=== PATIENT | male | born 1965 | race Caucasian/White ===

== ENCOUNTER 2019-01-09 05:56 | Inpatient (IN) ==
[2019-01-01 14:16] LABS: Basophils # 0.1 10*3/uL (0.0-0.2); Basophils % 0.6 % (0.0-0.8); Eosinophils # 0.1 10*3/uL (0.0-0.87); Eosinophils % 1.8 % (0.00-10.9); Hematocrit 45.3 VOL% (42.0-52.0); Hemoglobin 15.5 GM/DL (14.0-18.0); Immature Granulocytes % 0.5 %; Immature Granulocytes Absolute 0.04 #; Lymphocytes # 2.8 10*3/uL (1.4-4.0); Lymphocytes % 35.6 % (21.2-54.2); Mean Corpuscular HGB Conc 34.2 GM/DL (32-36); Mean Corpuscular Volume 91.3 FL (87-102); Mean Platelet Volume 8.6 FL (9.6-12.0); Monocytes % 8.8 % (1.7-12.7); Neutrophils % 52.7 % (38.7-73.9); Platelet Count 208 T/CUMM (130-400); Red Blood Count 4.96 MC/CUMM (3.8-5.5); Red Cell Distribution Width 13.3 % (9.3-17.3); White Blood Count 7.9 T/CUMM (4-12)
[2019-01-01 14:38] LABS: Albumin 4.1 G/DL (3.4-5.0); Bilirubin,Total 0.4 MG/DL (0.2-1.0); Calcium 9.7 MG/DL (8.5-10.1); Osmolality,Calculated 272.8 MOS/KG (273-304); Total Protein 7.7 G/DL (6.4-8.3)
[2019-01-09] MEDS ORDERED: FAMOTIDINE 20 MG TABLET PO ONE (06:00)
[2019-01-09] MEDS ORDERED: cefTRIAXone 1,000 MG in SYRINGE 1 EACH IV ONE (06:00)
[2019-01-09] MEDS ORDERED: BUPIVACAINE 0.5% 50 ML VIAL ONE (06:35)
[2019-01-09] MEDS ORDERED: DEXAMETHASONE 4 MG/1 ML VIAL ONE ×2 (06:36→12:38)
[2019-01-09] MEDS ORDERED: cefTRIAXone 1,000 MG VIAL ONE (06:50)
[2019-01-09] MEDS ORDERED: FAMOTIDINE 20 MG TABLET ONE (06:50)
[2019-01-09] MEDS ORDERED: LACTATED RINGERS 1,000 ML IV SCH (07:00)
[2019-01-09] MEDS ORDERED: METHYLENE BLUE 10 ML VIAL IV ONE (10:50)
[2019-01-09] MEDS ORDERED: ROPIVACAINE 0.5% 30 ML VIAL ONE (11:44)
[2019-01-09 12:10] LABS: Apearance,Urine CLEAR (Clear); Bilirubin,Urine Negative (Negative); Blood, Urine Small mg/dL (Negative); Glucose,Urine (UA) Negative (Negative); Hyaline Casts,Urine 14 /LPF (0-3); Ketones,Urine Negative (Negative); Mucus,Urine Occasional /LPF (Occasional); Nitrite,Urine Negative (Negative); Protein,Urine Negative; RBC,Urine 5 /HPF (0-4); Urine Color Yellow (Yellow); Urine Specific Gravity 1.014 (1.001-1.035); Urine Urobilinogen < 2.0 EU/DL (0.2-1.0); WBC,Urine 1 /HPF (0-6)
[2019-01-09] MEDS ORDERED: LACTULOSE 20 GM/30 ML UDCUP PO PRN (12:23)
[2019-01-09] MEDS ORDERED: diphenhydrAMINE 50 MG/1 ML VIAL IV PRN (12:23)
[2019-01-09] MEDS ORDERED: HYDROmorphone 2 MG/1 ML VIAL IV PRN (12:27)
[2019-01-09] MEDS ORDERED: BELLADONNA/OPIUM 30 MG SUPP RECTAL PRN (12:29)
[2019-01-09] MEDS ORDERED: LIDOCAINE 2% 5 ML VIAL ONE (12:37)
[2019-01-09] MEDS ORDERED: PHENYLEPHRINE DRIP 20 MG/250 ML PREMIX IV ONE (12:37)
[2019-01-09] MEDS ORDERED: SEVOFLURANE 1 UNIT/15 MINUTE INH ONE (12:37)
[2019-01-09] MEDS ORDERED: MIDAZOLAM 2 MG/2 ML VIAL ONE (12:37)
[2019-01-09] MEDS ORDERED: PROPOFOL 200 MG/20 ML VIAL IV ONE (12:37)
[2019-01-09] MEDS ORDERED: GLYCOPYRROLATE 0.4 MG/2 ML VIAL ONE (12:38)
[2019-01-09] MEDS ORDERED: ONDANSETRON 4 MG/2 ML VIAL ONE ×2 (12:38→12:59)
[2019-01-09] MEDS ORDERED: PROMETHAZINE INJ 25 MG in SODIUM CHLORIDE 0.9% 50 ML IV PRN (12:38)
[2019-01-09] MEDS ORDERED: ROCURONIUM 100 MG/10 ML VIAL IV ONE (12:38)
[2019-01-09] MEDS ORDERED: SUFentanil 50 MCG/ML AMP ONE (12:38)
[2019-01-09] MEDS ORDERED: PHENYLEPHRINE 1 MG/10 ML SYRINGE IV ONE (12:38)
[2019-01-09] MEDS ORDERED: LACTATED RINGERS 1,000 ML IV ONE (12:38)
[2019-01-09] MEDS ORDERED: ONDANSETRON 4 MG/2 ML VIAL IV PRN (12:38)
[2019-01-09] MEDS ORDERED: NEOSTIGMINE 10 MG/10 ML VIAL ONE (12:38)
[2019-01-09] MEDS: ACETAMINOPHEN 325 MG TABLET PO SCH ×2 (12:39→18:45)
[2019-01-09] MEDS: SODIUM CHLORIDE 0.9% 1,000 ML IV SCH ×2 (12:40→21:19)
[2019-01-09] MEDS ORDERED: PROMETHAZINE 25 MG/1 ML VIAL ONE (12:59)
[2019-01-09] MEDS ORDERED: MEPERIDINE 25 MG/1 ML VIAL ONE ×2 (12:59→13:05)
[2019-01-09] MEDS: MEPERIDINE 25 MG/1 ML VIAL IV PRN ×2 (13:00→13:10)
[2019-01-09 13:44] LABS: Basophils % 0.3 % (0.0-0.8); Hematocrit 46.7 VOL% (42.0-52.0); Hemoglobin 15.5 GM/DL (14.0-18.0); Immature Granulocytes % 0.6 %; Immature Granulocytes Absolute 0.09 #; Lymphocytes # 0.9 10*3/uL (1.4-4.0); Lymphocytes % 5.6 % (21.2-54.2); Mean Corpuscular HGB Conc 33.2 GM/DL (32-36); Mean Corpuscular Volume 92.8 FL (87-102); Mean Platelet Volume 8.9 FL (9.6-12.0); Monocytes % 3.3 % (1.7-12.7); Neutrophils % 90.2 % (38.7-73.9); Platelet Count 197 T/CUMM (130-400); Red Blood Count 5.03 MC/CUMM (3.8-5.5); Red Cell Distribution Width 13.5 % (9.3-17.3); White Blood Count 15.2 T/CUMM (4-12)
[2019-01-09 14:04] LABS: Calcium 8.9 MG/DL (8.5-10.1); Osmolality,Calculated 280.7 MOS/KG (273-304)
[2019-01-09] MEDS: DOCUSATE SODIUM 100 MG CAPSULE PO SCH (22:47)
[2019-01-10] MEDS: ACETAMINOPHEN 325 MG TABLET PO SCH ×4 (00:03→18:16)
[2019-01-10] MEDS: SODIUM CHLORIDE 0.9% 1,000 ML IV SCH (04:09)
[2019-01-10 07:19] LABS: Basophils % 0.2 % (0.0-0.8); Eosinophils % 0.2 % (0.00-10.9); Hematocrit 38.1 VOL% (42.0-52.0); Hemoglobin 12.9 GM/DL (14.0-18.0); Immature Granulocytes % 0.5 %; Immature Granulocytes Absolute 0.05 #; Lymphocytes # 1.9 10*3/uL (1.4-4.0); Lymphocytes % 18.3 % (21.2-54.2); Mean Corpuscular HGB Conc 33.9 GM/DL (32-36); Mean Corpuscular Volume 91.8 FL (87-102); Mean Platelet Volume 9.5 FL (9.6-12.0); Monocytes % 11.7 % (1.7-12.7); Neutrophils % 69.1 % (38.7-73.9); Platelet Count 174 T/CUMM (130-400); Red Blood Count 4.15 MC/CUMM (3.8-5.5); Red Cell Distribution Width 13.7 % (9.3-17.3); White Blood Count 10.4 T/CUMM (4-12)
[2019-01-10 07:44] LABS: Calcium 8.1 MG/DL (8.5-10.1); Osmolality,Calculated 275.5 MOS/KG (273-304)
[2019-01-10] MEDS ORDERED: POTASSIUM CHLORIDE 20 MEQ TABLET PO ONE (07:46)
[2019-01-10] MEDS ORDERED: SODIUM CHLOR 0.9% KCL 20 MEQ 20 MEQ/1,000 ML BAG IV SCH (08:00)
[2019-01-10] MEDS: ONDANSETRON 4 MG/2 ML VIAL IV PRN (10:10)
[2019-01-10] MEDS: FAMOTIDINE 20 MG TABLET PO SCH (10:11)
[2019-01-10] MEDS: DOCUSATE SODIUM 100 MG CAPSULE PO SCH ×2 (10:12→21:59)
[2019-01-10] MEDS: oxyCODONE/ACETAMINOPHEN 5-325 MG TABLET PO PRN ×2 (15:08→21:59)
[2019-01-10] MEDS: hydroCHLOROthiazide 12.5 MG CAPSULE PO SCH (16:48)
[2019-01-10] MEDS: SIMETHICONE CHEW 80 MG TABLET PO PRN ×2 (18:06→21:59)
[2019-01-10] MEDS ORDERED: OXYBUTYNIN XL 10 MG TABLET PO SCH (21:00)
[2019-01-11] MEDS: ACETAMINOPHEN 325 MG TABLET PO SCH ×3 (00:43→08:20)
[2019-01-11] MEDS: oxyCODONE/ACETAMINOPHEN 5-325 MG TABLET PO PRN (04:46)
[2019-01-11] MEDS: SIMETHICONE CHEW 80 MG TABLET PO PRN (04:46)
[2019-01-11] MEDS: ONDANSETRON 4 MG/2 ML VIAL IV PRN (04:58)
[2019-01-11 05:39] LABS: Basophils % 0.4 % (0.0-0.8); Eosinophils # 0.1 10*3/uL (0.0-0.87); Eosinophils % 0.7 % (0.00-10.9); Hematocrit 35.3 VOL% (42.0-52.0); Hemoglobin 12.2 GM/DL (14.0-18.0); Immature Granulocytes % 0.5 %; Immature Granulocytes Absolute 0.05 #; Lymphocytes # 1.6 10*3/uL (1.4-4.0); Lymphocytes % 16.1 % (21.2-54.2); Mean Corpuscular HGB Conc 34.6 GM/DL (32-36); Mean Platelet Volume 9.6 FL (9.6-12.0); Monocytes % 9.5 % (1.7-12.7); Neutrophils % 72.8 % (38.7-73.9); Platelet Count 160 T/CUMM (130-400); Red Blood Count 3.88 MC/CUMM (3.8-5.5); Red Cell Distribution Width 13.2 % (9.3-17.3); White Blood Count 9.9 T/CUMM (4-12)
[2019-01-11 06:05] LABS: Calcium 8.4 MG/DL (8.5-10.1); Osmolality,Calculated 262.5 MOS/KG (273-304)
[2019-01-11] MEDS ORDERED: POTASSIUM CHLORIDE 20 MEQ TABLET PO ONE (07:03)
[2019-01-11 07:14] VITALS: BP 160/88
[2019-01-11] MEDS: DOCUSATE SODIUM 100 MG CAPSULE PO SCH (08:21)
[2019-01-11] MEDS: FAMOTIDINE 20 MG TABLET PO SCH (08:21)
[2019-01-11] MEDS: hydroCHLOROthiazide 12.5 MG CAPSULE PO SCH (08:21)
== END 2019-01-11 12:03 | disposition home or self-care (01) | DRG 707 ==
LOC: N.PREADM 05:56 → N.SDSINP 05:56 → N.5E 14:20
PROVIDERS: ADMIT Surgery; ATTEND Surgery

== ENCOUNTER 2021-09-15 06:33 | Inpatient (IN) ==
[2021-09-15] MEDS ORDERED: SODIUM CHLORIDE 0.9% 1,000 ML IV STA (06:53)
[2021-09-15] MEDS ORDERED: ONDANSETRON 4 MG/2 ML VIAL IV STA (06:54)
[2021-09-15] MEDS ORDERED: LORazepam 2 MG/1 ML VIAL IV STA (07:12)
[2021-09-15 07:36] LABS: Basophils % 0.3 % (0.0-0.8); Hematocrit 35.8 VOL% (42.0-52.0); Hemoglobin 12.8 GM/DL (14.0-18.0); Immature Granulocytes % 0.7 %; Immature Granulocytes Absolute 0.05 #; Lymphocytes # 0.6 10*3/uL (1.4-4.0); Lymphocytes % 7.6 % (21.2-54.2); Mean Corpuscular HGB Conc 35.8 GM/DL (32-36); Mean Corpuscular Volume 87.7 FL (87-102); Mean Platelet Volume 9.1 FL (9.6-12.0); Monocytes # 0.3 10*3/uL (0.11-0.8); Monocytes % 4.5 % (1.7-12.7); Neutrophils % 86.9 % (38.7-73.9); Platelet Count 206 T/CUMM (130-400); Red Blood Count 4.08 MC/CUMM (3.8-5.5); Red Cell Distribution Width 12.3 % (9.3-17.3); White Blood Count 7.4 T/CUMM (4-12)
[2021-09-15 08:08] LABS: Albumin 3.6 G/DL (3.4-5.0); Bilirubin,Total 1.3 MG/DL (0.20-1.00); Osmolality,Calculated 247.8 MOS/KG (273-304); Potassium 2.8 MMOL/L (3.5-5.1); Total Protein 5.9 G/DL (6.4-8.2)
[2021-09-15 08:23] LABS: Bilirubin,Urine Negative (Negative); Blood, Urine Negative (Negative); Glucose,Urine (UA) 100 mg/dL (Negative); Hyaline Casts,Urine 7 /LPF (0-3); Ketones,Urine 80 mg/dL (Negative); Mucus,Urine Occasional /LPF (Occasional); Nitrite,Urine Negative (Negative); Protein,Urine Trace mg/dL (Negative); RBC,Urine 2 /HPF (0-4); Urine Appearance Clear (Clear); Urine Color Yellow (Yellow); Urine Specific Gravity 1.025 (1.001-1.035); Urine Urobilinogen 0.2 eU/dL (<2.0); Urine pH 5.5 (4.5-8.0)
[2021-09-15 08:33] LABS: Barbiturates Screen,Urine Negative (Negative); Benzodiazepines Screen,Urine Negative (Negative); Cannabinoid Screen,Urine Negative (Negative); Opiate Screen,Urine Negative (Negative); Phencyclidine Screen,Urine Negative (Negative)
[2021-09-15] MEDS ORDERED: DEXTROSE 10% 250 ML BAG IV PRN (09:08)
[2021-09-15] MEDS ORDERED: ACETAMINOPHEN 325 MG TABLET PO PRN (09:08)
[2021-09-15] MEDS ORDERED: GLUCAGON 1 MG VIAL IM PRN (09:08)
[2021-09-15] MEDS ORDERED: ONDANSETRON 4 MG/2 ML VIAL IV PRN (09:08)
[2021-09-15] MEDS ORDERED: MAGNESIUM SULF RIDER 4 GM/100 ML PREMIX IV PRN (09:11)
[2021-09-15] MEDS ORDERED: MAGNESIUM SULF RIDER 2 GM/50 ML PREMIX IV PRN (09:11)
[2021-09-15] MEDS: SODIUM CHLORIDE 0.9% 1,000 ML IV SCH ×3 (10:04→19:50)
[2021-09-15] MEDS: ENOXAPARIN 40 MG/0.4 ML SYRINGE SUBCUT SCH (10:05)
[2021-09-15] MEDS ORDERED: LORazepam 2 MG/1 ML VIAL IV PRN (10:45)
[2021-09-15] MEDS ORDERED: POTASSIUM CHLORIDE 20 MEQ TABLET PO ONE (10:58)
[2021-09-15] MEDS: INSULIN LISPRO 100 UNIT/ML SUBCUT SCH ×3 (11:30→20:23)
[2021-09-15 14:45] LABS: Calcium 8.7 MG/DL (8.5-10.1); Osmolality,Calculated 244.8 MOS/KG (273-304); Potassium 3.5 MMOL/L (3.5-5.1)
[2021-09-15] MEDS ORDERED: CALCIUM CARBONATE CHEW 500 MG TABLET PO PRN (18:29)
[2021-09-15 19:21] LABS: Calcium 7.9 MG/DL (8.5-10.1); Osmolality,Calculated 243.8 MOS/KG (273-304); Potassium 3.3 MMOL/L (3.5-5.1)
[2021-09-16] MEDS: POTASSIUM CHLORIDE 20 MEQ TABLET PO PRN ×2 (02:59→04:06)
[2021-09-16] MEDS: SODIUM CHLORIDE 0.9% 1,000 ML IV SCH ×2 (03:05→08:33)
[2021-09-16 04:29] LABS: Calcium 8.2 MG/DL (8.5-10.1); Osmolality,Calculated 254.9 MOS/KG (273-304); Potassium 3.9 MMOL/L (3.5-5.1); Risk Ratio 2.71; Total Protein 5.4 G/DL (6.4-8.2); VLDL Cholesterol 12.8 MG/DL
[2021-09-16] MEDS: INSULIN LISPRO 100 UNIT/ML SUBCUT SCH ×2 (07:45→11:28)
[2021-09-16] MEDS: ENOXAPARIN 40 MG/0.4 ML SYRINGE SUBCUT SCH ×2 (08:09→08:33)
[2021-09-16 08:45] VITALS: BP 121/77
[2021-09-16] MEDS ORDERED: PANTOPRAZOLE 40 MG TABLET PO SCH (09:00)
== END 2021-09-16 12:03 | disposition home or self-care (01) | DRG 101 ==
LOC: EDUNIT# → EDBD → N.ED 06:33 → SUATTDRO 09:08 → N.EDINP 09:08 → N.TELES 15:17
PROVIDERS: ADMIT Internal Medicine; ATTEND Internal Medicine